=== PATIENT | female | born 1965 | race Caucasian/White ===

== ENCOUNTER 2019-08-24 16:11 | Emergency (ER) | payer OTHER ==
[~2019-08-24] VITALS: Ht 157.5 cm; Wt 59.0 kg
[2019-08-24 16:39] VITALS: BP 125/84
--- NOTE | 2019-08-24 16:57 | NUR ---
PT C/O RT WRIST PAIN X 2 DAYS AGO UPON AWAKEN. DENIES TRAUMA/INJURY. SEEN BY ORTHO TODAY & X RAY NORMAL & WAS TOLD TO ER FOR CHECK BLOOD CLOT. PT REPORTS SHE TAPES A LOT BUT NEVER HAD THIS PAIN BEFORE. REDUCED OF ROM ON RT WRIST WITH SLIGHT EDEMA NOTICED. PATIENT STATES PAIN OF 6/10 AT THIS TIME; VSS; PATIENT POSITIONED FOR COMFORT IN CHAIR A. ER MD MADE AWARE OF PT STATUS.
[2019-08-24] MEDS ORDERED: KETOROLAC 30 MG/ML VIAL IM ONE (17:05)
[2019-08-24 18:52] VITALS: BP 114/74
--- NOTE | 2019-08-24 18:52 | NUR ---
Patient discharged with v/s stable. Written and verbal after care instructions given and explained. Patient alert, oriented and verbalized understanding of instructions. Ambulatory with steady gait. All questions addressed prior to discharge. ID band removed. Patient advised to follow up with PMD. Rx of [place] and Medrol given. Patient educated on indication of medication including possible reaction and side effects. Opportunity to ask questions provided and answered.
== END 2019-08-24 18:52 | disposition home or self-care (01) ==
LOC: MED 16:11
DX: M79.9 Soft tissue disorder, unspecified (principal); M25.531 Pain in right wrist
CPT/HCPCS: 93971; 96372; 99284; J1885; Q0092